=== PATIENT | male | born 1990 | race African-American/Black ===

== ENCOUNTER 2021-02-07 02:01 | Emergency (ER) | payer SELFPAY ==
[~2021-02-07] VITALS: Ht 185.4 cm; Wt 83.0 kg
[2021-02-07] MEDS ORDERED: ONDANSETRON 2MG/ML, 2ML ONE (02:18)
[2021-02-07] MEDS ORDERED: HYDROmorphone 2 MG/ML, 1ML ONE (02:18)
[2021-02-07] MEDS ORDERED: ONDANSETRON 2MG/ML, 2ML IVPush ONE (02:30)
[2021-02-07] MEDS ORDERED: HYDROmorphone 2 MG/ML, 1ML IVPush ONE (02:30)
[2021-02-07] MEDS ORDERED: KETAMINE 10 MG/ML, 20ML ONE (02:39)
[2021-02-07] MEDS ORDERED: KETAMINE 10 MG/ML, 20ML IV ONE (03:00)
--- NOTE | 2021-02-07 03:58 | NUR ---
PT HAD A SUCCESSFUL CONSIOUS SEDATION AND REDUCTION OF RIGHT SHOULDER. PT MEDICATED WITH KETAMINE 80 MG. 120 MG WASTED IN OMNICELL. PT WOKE UP AND IS ABLE TO TOLERATE AIRWAY WITH SATS ABOVE 94 PERCENT. SEE PAPERWORK FOR VITALS DURING AND AFTER SEDATION. PT CURRENTLY RESTING IN [facility], PT TO METOBOLIZE AND THEN D/C. PT ON ALL MONITORS. VSS, FRIEND AT BEDSIDE WELL.
[2021-02-07 04:30] VITALS: BP 135/77
== END 2021-02-07 04:47 | disposition home or self-care (01) ==
LOC: ED 03:00
DX: S43.084A Other dislocation of right shoulder joint, initial encounter (principal); W18.30XA Fall on same level, unspecified, initial encounter; Y93.89 Activity, other specified; Y92.89 Other specified places as the place of occurrence of the external cause; Y99.8 Other external cause status
CPT/HCPCS: 23650; 73020; 96374; 96375; 99152; 99285; J1170; J2405